=== PATIENT | female | born 1975 | race Hispanic/Latino ===

== ENCOUNTER → 2023-04-03 | Outpatient (CLI) | payer OTHER | LOC: M WHC 12:40 | PROVIDERS: ATTEND Family Medicine | DX: Z12.31 Encounter for screening mammogram for malignant neoplasm of breast (principal) ==

== ENCOUNTER 2023-12-11 11:26 | Emergency (ER) | payer OTHER ==
[2023-12-11 15:33] VITALS: BP 163/87; TEMP 97.2; O2SAT 98
== END 2023-12-11 15:39 | disposition home or self-care (01) ==
LOC: M ED 11:26
DX: M76.52 Patellar tendinitis, left knee (principal); M76.51 Patellar tendinitis, right knee